=== PATIENT | male | born 1985 | race Caucasian/White ===

== ENCOUNTER 2020-01-05 21:08 | Emergency (ER) | payer OTHER ==
[~2020-01-05] VITALS: Ht 175.3 cm; Wt 63.6 kg
[2020-01-05 21:12] VITALS: Ht 175.3 cm; Wt 63.6 kg
[2020-01-05 21:48] VITALS: BP 111/70
--- NOTE | 2020-01-05 23:33 | NUR ---
DR JAMES NOTIFIED OF PT's BEHAVIOR AND ASSESSMENT RESLTS, PT IS A LOW RISK PER DR JAMES. DR JAMES STATED TO GIVE RESOURCES TO PT AT TIME OF DISCHARGE. NO FURTHER ORDERS AT THIS TIME. REVIEDED RESOURCES WITH PT AND HE VERBALIZED UNDERSTANDING.
== END 2020-01-05 21:48 | disposition home or self-care (01) ==
LOC: D.ER 21:08
DX: M25.562 Pain in left knee (principal)

== ENCOUNTER 2020-01-11 23:33 | Emergency (ER) | payer OTHER ==
[~2020-01-11] VITALS: Ht 175.3 cm; Wt 68.2 kg
[2020-01-11 23:37] VITALS: BP 100/59; Ht 175.3 cm; Wt 68.2 kg
== END 2020-01-12 00:51 | disposition home or self-care (01) ==
LOC: D.ER 23:33
DX: G89.29 Other chronic pain (principal); M54.5 Low back pain